=== PATIENT | female | born 1990 | race Caucasian/White ===

== ENCOUNTER 2017-05-23 07:29 | Day surgery (SDC) | payer OTHER ==
[2017-05-23] MEDS ORDERED: Lactated Ringers 1,000 ML IV SCH (07:30)
[2017-05-23] MEDS ORDERED: Propofol 200 MG/20 ML SDV IV ONE (09:30)
--- NOTE | 2017-05-23 10:03 | PCM.OPNOTE ---
- General Post-Op/Procedure Note Date of Surgery/Procedure: 05/23/17 Operative Procedure(s): c scope with bx Findings: normal terminal ileum and normal colon Pre Op Diagnosis: diarrhea Post-Op Diagnosis: normal scope Anesthesia Technique: MAC Primary Surgeon: Juan Francisco Lyons Anesthesia Provider: Guillaume Hernandez Complications: None Condition: Good Free Text/Narrative:: see dictation
--- NOTE | 2017-05-23 10:49 | OR ---
DATE OF OPERATION: 05/23/2017 SURGEON: Juan Francisco Lyons MD PROCEDURE PERFORMED: Colonoscopy with cold forceps biopsy. PREOPERATIVE DIAGNOSIS: Diarrhea. POSTOPERATIVE DIAGNOSIS: Normal appearing terminal ileum and colon. INDICATIONS FOR PROCEDURE: This is a 26-year-old white female, who has a longstanding history of diarrhea. She was offered and accepted lower endoscopy. She does have a family history of inflammatory bowel disease. DESCRIPTION OF PROCEDURE: After an excellent IV sedation was administered, digital rectal exam was performed. No marked abnormality was noted. Flexible colonoscope was inserted and advanced without difficulty to the cecum. On reaching the cecum, the terminal ileum was intubated. The following findings were noted. Terminal ileum unremarkable. Random biopsies were taken. Ascending colon, unremarkable. Random biopsies were taken. Transverse colon, unremarkable. Random biopsies were taken. Descending colon, unremarkable. Random biopsies were taken. Sigmoid and rectum unremarkable. Random biopsies were taken. Colon was deflated as the scope was removed. The patient tolerated the procedure well, and was taken to recovery room in good condition. /[id number] SONIA/GERONIMO SCHULTZ
[2017-05-23 11:12] VITALS: BP 106/66
== END 2017-05-23 11:06 | disposition home or self-care (01) ==
LOC: FB.SDS 07:29
PROVIDERS: ATTEND Surgery
DX: R19.7 Diarrhea, unspecified (principal); J45.909 Unspecified asthma, uncomplicated; Z79.2 Long term (current) use of antibiotics; Z79.899 Other long term (current) drug therapy; Z90.49 Acquired absence of other specified parts of digestive tract
CPT/HCPCS: 45380; 81025; 88305; J2704; J7120

== ENCOUNTER 2017-08-11 18:14 | Emergency (ER) | payer OTHER ==
[2017-08-11] MEDS ORDERED: Albuterol/Ipratropium 3.0-0.5 MG/3 ML Neb Soln NEB ONE (18:26)
--- NOTE | 2017-08-11 18:32 | EDM.PDOC ---
ED HPI GENERAL MEDICAL PROBLEM - General Chief Complaint: Respiratory Problem Stated Complaint: CONNIES,SOB, ASTHMA Time Seen by Provider: 08/11/17 18:14 Source of Information: Reports: Patient, Family History Limitations: Reports: No Limitations - History of Present Illness INITIAL COMMENTS - FREE TEXT/NARRATIVE: 26 y.o.w.jose angel came with her frienf to the ed because of chills, non productive cough and a "running " nose. Pt has a h/o asthm and take Albut nebs at home. Pt does not smoke or drink. BP 108/74 Temp 36.9 Pulse 81 RR 20 Pulse ox 98% on RA Onset: Today Onset Date: 08/09/17 Onset Time: 09:00 Duration: Day(s):, Intermittent Location: Reports: Face, Chest Quality: Reports: Burning, Same as Previous Episode Severity: Mild Improves with: Reports: Medication Context: Reports: Sick Contact, Other (h/o asthma) Associated Symptoms: Reports: Cough, Fever/Chills Treatments DOG SITTER: Reports: Other (see below) (albuterol) - Related Data Allergies Allergy/AdvReac Type Severity Reaction Status Date / Time No Known Allergies Allergy Verified 08/11/17 19:13 Home Meds: Home Meds Albuterol [Proventil HFA] 2 puff INH Q4H PRN 05/22/17 [History] Budesonide/Formoterol Fumarate [Symbicort 160-4.5 Mcg Inhaler] 2 puff INH BID [History] Oseltamivir [Tamiflu] 75 mg PO BID #9 cap 08/11/17 [Rx] predniSONE [predniSONE Dose Pack] 10 mg PO ASDIRECTED #1 dospk 08/11/17 [Rx] Past Medical History - Past Health History Medical/Surgical History: Denies Medical/Surgical History HEENT History: Other HEENT History: CLEFT LIP /PALATE Respiratory History: Reports: Asthma Psychiatric History: Reports: Anxiety Endocrine/Metabolic History: Reports: Other (See Below) Other Endocrine/Metabolic History: GROWTH HORMONE DEFICIENCY - Past Surgical History HEENT Surgical History: Reports: Other (See Below) Other HEENT Surgeries/Procedures: CLEFT LIP/ PALATE REPAIR GI Surgical History: Reports: Appendectomy Social & Family History - Tobacco Use Smoking Status *Q: Never Smoker Second Hand Smoke Exposure: No - Caffeine Use Caffeine Use: Reports: None - Alcohol Use Days Per Week of Alcohol Use: 2 Number of Drinks Per Day: 6 Total Drinks Per Week: 12 - Recreational Drug Use Recreational Drug Use: Yes Recreational Drug Type: Reports: Marijuana/Hashish ED ROS GENERAL - Review of Systems Review Of Systems: See Below Constitutional: Reports: No Symptoms, Decreased Appetite HEENT: Reports: Rhinitis Respiratory: Reports: Cough Cardiovascular: Reports: No Symptoms Endocrine: Reports: No Symptoms GI/Abdominal: Reports: No Symptoms : Reports: No Symptoms Musculoskeletal: Reports: No Symptoms Skin: Reports: No Symptoms Neurological: Reports: No Symptoms Psychiatric: Reports: No Symptoms Hematologic/Lymphatic: Reports: No Symptoms Immunologic: Reports: No Symptoms ED EXAM, GENERAL - Physical Exam Exam: See Below Exam Limited By: No Limitations General Appearance: Alert, WD/WN, Mild Distress Eye Exam: Bilateral Eye: Normal Inspection Ears: Normal External Exam Ear Exam: Bilateral Ear: Auricle Normal Nose: Nasal Drainage Throat/Mouth: Normal Inspection, Normal Lips, Normal Teeth, Normal Voice, No Airway Compromise Head: Atraumatic, Normocephalic Neck: Normal Inspection, Supple, Non-Tender, Full Range of Motion Respiratory/Chest: No Respiratory Distress, Wheezing (minor), Prolonged Expiration Cardiovascular: Normal Peripheral Pulses, Regular Rate, Rhythm, No Edema, No Gallop, No JVD, No Murmur, No Rub GI/Abdominal: Normal Bowel Sounds, Soft, Non-Tender, No Organomegaly, No Abnormal Bruit, No Mass (Female) Exam: Deferred Rectal (Female) Exam: Deferred Back Exam: Normal Inspection, Full Range of Motion Extremities: Normal Inspection, Normal Range of Motion, Non-Tender, No Pedal Edema, Normal Capillary Refill Neurological: Alert, Oriented, CN II-XII Intact, Normal Cognition, Normal Gait, No Motor/Sensory Deficits Psychiatric: Normal Affect, Normal Mood Skin Exam: Warm, Dry, Intact, Normal Color, No Rash Lymphatic: No Adenopathy Course - Vital Signs Text/Narrative:: 26 y.o.w.f came with her frienf to the ed because of chills, non productive cough and a "running " nose. Pt has a h/o asthma and take Albut nebs at home. Pt does not smoke or drink. BP 108/74 Temp 36.9 Pulse 81 RR 20 Pulse ox 98% on RA PE: WNWD W F with nasal congestion, asthma and flu like symptoms Labs: Influenza B pos. Imaging: CXR NAD Impression: Influenza B, Asthma exacerbation, viral syndrome Tx: Tamiflu, Prednison Reexam: Improved, pt stated she feel better and is ready to be discharged. Plan: D/C with instruction Last Recorded V/S: Last Vital Signs Temp 37.1 C 08/11/17 19:30 Pulse 80 08/11/17 19:30 Resp 16 08/11/17 19:30 BP 115/72 08/11/17 19:30 Pulse Ox 100 08/11/17 19:30 - Orders/Labs/Meds Orders: Active Orders 24 hr Category Date Time Status RT Aerosol Therapy [RC] ASDIRECTED Care 08/11/17 18:27 Active Chest 2V [CR] Stat Exams 08/11/17 18:26 Taken Meds: Medications Discontinued Medications Generic Name Dose Route Start Last Admin Trade Name Freq PRN Reason Stop Dose Admin Albuterol/Ipratropium 3 ml 08/11/17 18:26 08/11/17 18:36 Duoneb 3.0-0.5 Mg/3 Ml NEB 08/11/17 18:27 3 ml ONETIME ONE Administration Oseltamivir Phosphate 75 mg 08/11/17 19:10 08/11/17 19:17 Tamiflu PO 08/11/17 19:11 75 mg ONETIME ONE Administration Prednisone 20 mg 08/11/17 19:16 08/11/17 19:20 Prednisone PO 08/11/17 19:17 20 mg ONETIME ONE Administration Departure - Departure Time of Disposition: 19:17 Disposition: Home, Self-Care 01 Condition: Good Clinical Impression: Influenza B Asthma Qualifiers: Asthma severity: mild Asthma persistence: intermittent Asthma complication type : uncomplicated Qualified Code(s): J45.20 - Mild intermittent asthma, uncomplicated - Discharge Information Prescriptions: Oseltamivir [Tamiflu] 75 mg PO BID #9 cap predniSONE [predniSONE Dose Pack] 10 mg PO ASDIRECTED #1 dospk Instructions: Influenza, Adult, [id number], Oseltamivir capsules, Prednisone tablets Referrals: Pedrito Estrada MD [Primary Care Provider] - Forms: ED Department Discharge Additional Instructions: Please take the meds as recommended, please f/u, come back if your symptoms get worse acutely - My Orders Last 24 Hours: My Active Orders 08/11/17 18:26 Chest 2V [CR] Stat 08/11/17 18:27 RT Aerosol Therapy [RC] ASDIRECTED - Assessment/Plan Last 24 Hours: My Active Orders 08/11/17 18:26 Chest 2V [CR] Stat 08/11/17 18:27 RT Aerosol Therapy [RC] ASDIRECTED
[2017-08-11] MEDS ORDERED: Oseltamivir 75 MG Cap PO ONE (19:10)
[2017-08-11] MEDS ORDERED: predniSONE 20 MG Tab PO ONE (19:16)
[2017-08-11 19:38] VITALS: BP 115/72
--- NOTE | 2017-08-12 14:01 | CR ---
INDICATION: Cough. CHEST: PA and lateral views of the chest 08/11/2017 were compared with 2013 and 03/17/2013. Although a definite active infiltrate or effusion was not identified, there is some minimal bronchial wall cuffing at the lung bases, which may be on the basis of active peribronchial disease and/or fibrosis, and should be correlated clinically. Heart, mediastinum, bony thorax, and upper abdomen appear to be normal. IMPRESSION: No definite acute process. However, there is minimal bronchial wall cuffing in the lung bases, which could be on the basis of active peribronchial disease and should be correlated clinically. MTDD
== END 2017-08-11 19:30 | disposition home or self-care (01) ==
LOC: FB.ED 18:14
DX: J10.1 Influenza due to other identified influenza virus with other respiratory manifestations (principal); J45.20 Mild intermittent asthma, uncomplicated
CPT/HCPCS: 71046; 87804; 87807; 94640; 99284; A9270; J7620

== ENCOUNTER 2017-08-11 21:11 | Emergency (ER) | payer OTHER ==
[2017-08-11] MEDS ORDERED: Ondansetron 4 MG/2 ML SDV IVPUSH STA (21:16)
[2017-08-11] MEDS ORDERED: Pantoprazole 40 MG Vial IVPUSH ONE (21:17)
[2017-08-11] MEDS: Sodium Chloride 0.9% 1,000 ML IV ONE ×2 (21:20→23:32)
--- NOTE | 2017-08-11 22:16 | EDM.PDOC ---
ED HPI GENERAL MEDICAL PROBLEM - General Stated Complaint: VOMIT Time Seen by Provider: 08/11/17 21:11 Source of Information: Reports: Patient, Family History Limitations: Reports: No Limitations - History of Present Illness INITIAL COMMENTS - FREE TEXT/NARRATIVE: 26 o.w.f was seen here in the ED for Flu like symptoms, Influenca B and asthma. Pt received 75 mg Tamiflu, a Duoneb and prednison. Pt's symptoms improved and the patient requested to be discharged. About one hour after D/C from this ED one of her relatives called (Niece?) into our ED, being verbally abusive, requesting the patient is receiving I.V fluids since she vomiting, threatening "she will go to [place]". I asked the caller to bring the pt back in. As the pt arrived here, the friend was arguing with the admitting person about the previous ED visit, requesting pt should not be charged for this 2nd vist. I saw the patient walking in the exam room and ordered right away lab work, an peripheral IV and I. fluids, given the H/O nausea and vomiting now. The nurse immediately started an I.V. after about 20 cc of NS were infused pt complained of pain at he I.V site requested the I.V to be removed immediately and eloped immediately. I did not have the chance to examine this pt again on this visit because the patient eloped. technical services specialist was present, could not collect blood because the patient eloped. Onset Date: 08/11/17 Onset Time: 21:00 Duration: Minutes: Location: Reports: Abdomen - Related Data Allergies Allergy/AdvReac Type Severity Reaction Status Date / Time No Known Allergies Allergy Verified 08/11/17 19:13 Home Meds: Home Meds Albuterol [Proventil HFA] 2 puff INH Q4H PRN 05/22/17 [History] Budesonide/Formoterol Fumarate [Symbicort 160-4.5 Mcg Inhaler] 2 puff INH BID [History] Oseltamivir [Tamiflu] 75 mg PO BID #9 cap 08/11/17 [Rx] predniSONE [predniSONE Dose Pack] 10 mg PO ASDIRECTED #1 dospk 08/11/17 [Rx] Past Medical History - Past Health History Medical/Surgical History: Denies Medical/Surgical History HEENT History: Other HEENT History: CLEFT LIP /PALATE Respiratory History: Reports: Asthma Psychiatric History: Reports: Anxiety Endocrine/Metabolic History: Reports: Other (See Below) Other Endocrine/Metabolic History: GROWTH HORMONE DEFICIENCY - Infectious Disease History Infectious Disease History: Reports: Chicken Pox - Past Surgical History HEENT Surgical History: Reports: Other (See Below) Other HEENT Surgeries/Procedures: CLEFT LIP/ PALATE REPAIR GI Surgical History: Reports: Appendectomy Social & Family History - Family History Family Medical History: Noncontributory - Tobacco Use Smoking Status *Q: Never Smoker Second Hand Smoke Exposure: No - Caffeine Use Caffeine Use: Reports: None - Alcohol Use Days Per Week of Alcohol Use: 2 Number of Drinks Per Day: 6 Total Drinks Per Week: 12 - Recreational Drug Use Recreational Drug Use: Yes Recreational Drug Type: Reports: Marijuana/Hashish ED ROS GENERAL - Review of Systems Review Of Systems: Unable To Obtain (pt was seen one hour ago) ED EXAM, GI/ABD - Physical Exam Exam: See Below (Pt left AMA before PE) Course - Vital Signs Text/Narrative:: 26 o.w.f was seen here in the ED for Flu like symptoms, Influenca B and asthma. Pt received 75 mg Tamiflu, a Duoneb and prednison. Pt's symptoms improved and the patient requested to be discharged. About one hour after D/C from this ED one of her relatives called (Niece?) into our ED, being verbally abusive, requesting the patient is receiving I.V fluids since she vomiting, threatening "she will go to [place]". I asked the caller to bring the pt back in. As the pt arrived here, the friend was arguing with the admitting person about the previous ED visit, requesting pt should not be charged for this 2nd vist. I saw the patient walking in the exam room and ordered right away lab work, an peripheral IV and I. fluids, given the H/O nausea and vomiting now. The nurse immediately started an I.V. after about 20 cc of NS were infused pt complained of pain at he I.V site requested the I.V to be removed immediately and eloped immediately. I did not have the chance to examine this pt again on this visit because the patient eloped. technical services specialist was present, could not collect blood because the patient eloped. PE: Flu like symptoms Labs: Ptrefused, eloped Impression: N/V after tamiflu, duoneba nd prednison(po) were applied on her previous visit. Tx: Pt refused w/u and I,V fluids Pt eloped from the ED (?) possible due to painful peripheral I.V insertion - Orders/Labs/Meds Meds: Medications Discontinued Medications Generic Name Dose Route Start Last Admin Trade Name Freq PRN Reason Stop Dose Admin Sodium Chloride 1,000 mls @ 999 mls/hr 08/11/17 21:15 Normal Saline IV 08/11/17 22:15 .BOLUS ONE Ondansetron HCl 8 mg 08/11/17 21:16 Zofran IVPUSH 08/11/17 21:17 ONETIME STA Pantoprazole Sodium 40 mg 08/11/17 21:17 Protonix Iv IVPUSH 08/11/17 21:18 ONETIME ONE Departure - Departure Time of Disposition: 21:35 Disposition: Eloped 07 Clinical Impression: Flu syndrome - Discharge Information Referrals: Pedrito Estrada MD [Primary Care Provider] -
[2017-08-11 22:55] VITALS: BP 124/79
== END 2017-08-11 21:35 | disposition left against medical advice (07) ==
LOC: FB.ED 21:11
DX: J11.1 Influenza due to unidentified influenza virus with other respiratory manifestations (principal); J45.909 Unspecified asthma, uncomplicated; Z79.51 Long term (current) use of inhaled steroids; Z79.899 Other long term (current) drug therapy
CPT/HCPCS: 99281; J7040